=== PATIENT | female | born 1975 | race African-American/Black ===

== ENCOUNTER 2020-11-21 21:30 | Emergency (ER) | payer OTHER ==
[~2020-11-21] VITALS: Ht 190.5 cm; Wt 77.3 kg
[2020-11-21 21:37] VITALS: BP 137/77
[2020-11-21] MEDS ORDERED: HYDROcodone/acetaminophen 5mg/325mg tablet PO ONE (21:55)
[2020-11-21] MEDS ORDERED: naproxen 500mg tablet PO ONE (21:55)
[2020-11-21] MEDS ORDERED: cyclobenzaprine 10mg tablet PO ONE (21:55)
[2020-11-21] MEDS ORDERED: NAPR-56 PO (21:56)
[2020-11-21] MEDS ORDERED: CYCL-1 PO (21:56)
== END 2020-11-21 22:08 | disposition home or self-care (01) ==
LOC: ER 21:31
DX: S00.90XA Unspecified superficial injury of unspecified part of head, initial encounter (principal); R51.9 Headache, unspecified; M54.89 Other dorsalgia; M25.511 Pain in right shoulder; J45.909 Unspecified asthma, uncomplicated; F17.200 Nicotine dependence, unspecified, uncomplicated; Z79.899 Other long term (current) drug therapy; Z98.51 Tubal ligation status; X58.XXXA Exposure to other specified factors, initial encounter; Y93.89 Activity, other specified; Y92.89 Other specified places as the place of occurrence of the external cause; Y99.8 Other external cause status
CPT/HCPCS: 99284

== ENCOUNTER 2020-11-28 07:25 | Emergency (ER) | payer MEDICAID, OTHER ==
[~2020-11-28] VITALS: Ht 190.5 cm; Wt 75.0 kg
[~2020-11-28 07:25] MED LIST: CYCL-1 PO; NAPR-56 PO
[2020-11-28 08:05] LABS: COLOR,URINE YELLOW (Yellow); GLUCOSE, URINE NEGATIVE (Neg); KETONES,URINE NEGATIVE (Neg); LEUKOCYTE ESTERASE ,URINE TRACE (Neg); NITRITES, URINE NEGATIVE (Neg); OCCULT BLOOD,URINE MODERATE (Neg); PROTEIN,URINE NEGATIVE (Neg)
[2020-11-28 08:07] LABS: URINE HCG NEGATIVE (NEG)
[2020-11-28 08:14] LABS: CLARITY,URINE SLIGHTLY CLOUDY (Clear); UA COLLECTION TYPE CLN CATCH MIDSTREAM
[2020-11-28 08:16] LABS: BACTERIA,URINE 1+ /HPF (Neg); MUCUS STRANDS FEW /LPF (Neg); SQUAMOUS EPITHELIAL CELL,UR MANY /LPF (FEW)
[2020-11-28 08:17] LABS: TRICHOMONAS,URINE MOD /HPF (NEGATIVE)
[2020-11-28] MEDS ORDERED: methylPREDNISolone sod succ 125mg/2ml vial IV ONE (08:30)
[2020-11-28] MEDS ORDERED: diphenhydrAMINE 50 mg/ml inj IV ONE (08:30)
--- NOTE | 2020-11-28 08:45 | NUR ---
Cousin updated on plan of care. Nurse at bedside.
[2020-11-28 08:53] LABS: BASOPHILS # (AUTO) 0.1 X10'3 (0-0.2); BASOPHILS % (AUTO) 0.5 % (0-1); EOSINOPHILS % (AUTO) 0.1 % (0-6); HEMATOCRIT 41.2 % (35.0-45.0); HEMOGLOBIN 13.8 g/dl (12.0-16.0); LYMPHOCYTES # (AUTO) 1.7 X10'3 (1.1-4.8); LYMPHOCYTES % (AUTO) 14.1 % (21-51); MEAN CORPUSCULAR HEMOGLOBIN 32.3 PG (27.0-31.0); MEAN CORPUSCULAR HGB CONC 33.5 g/dL (33.0-36.5); MEAN CORPUSCULAR VOLUME 96.4 FL (78-98); MEAN PLATELET VOLUME 8.5 FL (7.4-10.4); MONOCYTES # (AUTO) 0.8 X10'3 (0-0.9); MONOCYTES % (AUTO) 6.5 % (2-12); NEUTROPHILS # (AUTO) 9.6 X10'3 (1.8-7.7); NEUTROPHILS % (AUTO) 78.8 % (42-75); PLATELET COUNT 264 X10'3 (140-440); RED BLOOD COUNT 4.27 X10'6 (4.20-5.60); RED CELL DISTRIBUTION WIDTH 13.5 % (11.5-14.5); WHITE BLOOD COUNT 12.1 X10'3 (4.5-11.0)
[2020-11-28 09:05] LABS: ALANINE AMINOTRANSFERASE 35 U/L (12-78); ALBUMIN 3.5 G/DL (3.4-5.0); ALBUMIN/GLOBULIN RATIO 0.8 (1.1-1.5); ALKALINE PHOSPHATASE 94 IU/L (46-116); ANION GAP 13 (8-16); ASPARTATE AMINO TRANSFERASE 26 U/L (10-37); BLOOD UREA NITROGEN 8 MG/DL (7-18); BUN/CREATININE RATIO 8.7 (6.6-38.0); CALCIUM 9.4 MG/DL (8.5-10.1); CHLORIDE 105 MMOL/L (99-107); CREATININE 0.92 MG/DL (0.40-0.90); GLUCOSE 112 MG/DL (70-104); POTASSIUM 3.5 MMOL/L (3.5-5.1); SODIUM 141 MMOL/L (135-145); TOTAL CARBON DIOXIDE 23.1 MMOL/L (24-32); TOTAL PROTEIN 8.1 G/DL (6.4-8.2); eGFR 80 ML/MIN
[2020-11-28] MEDS ORDERED: iohexol 300mg/ml 100ml inj. ONE (09:27)
[2020-11-28 10:09] VITALS: BP 134/86
[2020-11-28] MEDS ORDERED: CEPH-585 PO (10:24)
[2020-11-28] MEDS ORDERED: cephalexin 250mg capsule PO ONE ×2 (10:25→10:35)
== END 2020-11-28 11:13 | disposition home or self-care (01) ==
LOC: ER 07:26
DX: N39.0 Urinary tract infection, site not specified (principal); M54.5 Low back pain; J45.909 Unspecified asthma, uncomplicated; Z98.51 Tubal ligation status; Z79.2 Long term (current) use of antibiotics; Z79.899 Other long term (current) drug therapy
CPT/HCPCS: 36415; 74177; 80053; 81001; 81025; 85025; 96374; 96375; 99285; J1200; J2930; Q9967

== ENCOUNTER 2023-01-01 09:26 | Emergency (ER) | payer MEDICAID ==
[~2023-01-01] VITALS: Ht 190.5 cm; Wt 56.4 kg
[~2023-01-01 09:26] MED LIST changes: -NAPR-56 PO
[2023-01-01 09:36] VITALS: BP 136/83
[2023-01-01] MEDS ORDERED: HYDROcodone/acetaminophen 10/325mg tab PO ONE (10:40)
[2023-01-01] MEDS ORDERED: TRAM50TA2 PO (11:12)
== END 2023-01-01 11:36 | disposition home or self-care (01) ==
LOC: ER 09:27
DX: S52.691A Other fracture of lower end of right ulna, initial encounter for closed fracture (principal); S61.412A Laceration without foreign body of left hand, initial encounter; J45.909 Unspecified asthma, uncomplicated; Z98.51 Tubal ligation status; Z88.0 Allergy status to penicillin; Z88.2 Allergy status to sulfonamides; Z88.1 Allergy status to other antibiotic agents; Z79.899 Other long term (current) drug therapy; W26.8XXA Contact with other sharp object(s), not elsewhere classified, initial encounter; Y93.89 Activity, other specified; Y92.89 Other specified places as the place of occurrence of the external cause; Y99.8 Other external cause status
CPT/HCPCS: 29125; 73110; 99283; A4565; A6449

== ENCOUNTER 2023-06-22 12:36 | Emergency (ER) | payer MEDICAID ==
[~2023-06-22] VITALS: Ht 190.5 cm; Wt 67.0 kg
[2023-06-22 14:06] VITALS: BP 152/74; PULSE 76; RESP 12; TEMP 97.8; O2SAT 100
[2023-06-22] MEDS ORDERED: ketorolac trometh inj. 60 MG/2 ML VIAL IM ONE (14:50)
[2023-06-22] MEDS ORDERED: ketorolac tromethamine 15mg/ml inj. IM ONE (14:50)
[2023-06-22] MEDS ORDERED: IBUP-1985 PO (14:51)
== END 2023-06-22 15:35 | disposition home or self-care (01) ==
LOC: ER 12:36
DX: S20.219A Contusion of unspecified front wall of thorax, initial encounter (principal); W19.XXXA Unspecified fall, initial encounter; Y93.89 Activity, other specified; Y92.89 Other specified places as the place of occurrence of the external cause; Y99.8 Other external cause status
CPT/HCPCS: 71045; 96372; 99284; J1885

== ENCOUNTER 2025-04-03 11:07 | Emergency (ER) | payer OTHER, MEDICAID ==
[~2025-04-03] VITALS: Ht 190.5 cm; Wt 70.7 kg
[~2025-04-03 11:07] MED LIST changes: +IBUP-1985 PO
[2025-04-03 11:27] VITALS: BP 127/82; PULSE 99; RESP 15; O2SAT 99
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
[2025-04-03] MEDS ORDERED: NAPR-1168 PO (13:09)
[2025-04-03 13:28] VITALS: TEMP 98.5
== END 2025-04-03 13:29 | disposition home or self-care (01) ==
LOC: ER 11:07
DX: S09.8XXA Other specified injuries of head, initial encounter (principal); S19.80XA Other specified injuries of unspecified part of neck, initial encounter; Z88.0 Allergy status to penicillin; Z88.1 Allergy status to other antibiotic agents; Z88.2 Allergy status to sulfonamides; Z98.51 Tubal ligation status; V89.2XXA Person injured in unspecified motor-vehicle accident, traffic, initial encounter; Y93.89 Activity, other specified; Y92.410 Unspecified street and highway as the place of occurrence of the external cause; Y99.8 Other external cause status
CPT/HCPCS: 72040; 73521; 99284